=== PATIENT | female | born 1960 | race Caucasian/White ===

== ENCOUNTER → 2018-08-20 | Outpatient (CLI) | payer OTHER ==
[~2018-08-20] MED LIST: B-COMPLEX WITH1 EACH; BRINTELLIX20 MG PO; CELE200 PO; CONEST.9 PO; CONEST1.25 PO; FISH OIL; FISH OIL 1,2001 EACH PO; HYDACE5 PO; LISHYD1012 PO; MVI; NAPR220 PO; OLME20 PO; OLME20-12.; OLME20-12. PO; ONDA4 PO; PANT40 PO; TRINTELLIX PO; VALA500; VENL150ER PO; VITAMIN D; VITAMIN D35000 UNIT PO
== END | disposition home or self-care (01) ==
LOC: LAB EV 09:56 → LAB SHORT 09:56
DX: J18.9 Pneumonia, unspecified organism (principal)
CPT/HCPCS: 87070; 87205

== ENCOUNTER 2020-08-16 08:32 | Day surgery (SDC) | payer OTHER ==
[~2020-08-16] VITALS: Ht 165.1 cm; Wt 73.7 kg
[~2020-08-16 08:32] MED LIST changes: +DULO30; +Flector1 EACH; +Flonase 0.05% N16 GM; +LORA10ER
== END 2020-08-16 10:54 | disposition home or self-care (01) ==
LOC: ORSCSDS 08:32
PROVIDERS: Internal Medicine Gastroenterology
PROC: 0DB78ZX Excision of Stomach, Pylorus, Via Natural or Artificial Opening Endoscopic, Diagnostic (ICD-10-PCS; principal; 2020-08-16 09:45)
PROC: 0D757ZZ Dilation of Esophagus, Via Natural or Artificial Opening (ICD-10-PCS; principal; 2020-08-16 09:45)
PROC: 0DJD8ZZ Inspection of Lower Intestinal Tract, Via Natural or Artificial Opening Endoscopic (ICD-10-PCS; principal; 2020-08-16 09:45)
PROC: 0DB48ZX Excision of Esophagogastric Junction, Via Natural or Artificial Opening Endoscopic, Diagnostic (ICD-10-PCS; principal; 2020-08-16 09:45)
DX: K21.9 Gastro-esophageal reflux disease without esophagitis (principal); R13.10 Dysphagia, unspecified; K62.5 Hemorrhage of anus and rectum; K57.30 Diverticulosis of large intestine without perforation or abscess without bleeding; K60.2 Anal fissure, unspecified; H44.9 Unspecified disorder of globe; K29.70 Gastritis, unspecified, without bleeding; I10 Essential (primary) hypertension; Z79.899 Other long term (current) drug therapy
CPT/HCPCS: 87081; 88305; J2704; J7120

== ENCOUNTER → 2023-09-06 | Outpatient (CLI) | payer OTHER | LOC: LAB 11:10 → LAB SHORT 11:10 | DX: R30.0 Dysuria (principal) | CPT/HCPCS: 87077; 87086; 87186 ==